=== PATIENT | female | born 1985 | race Caucasian/White ===

== ENCOUNTER 2022-01-05 10:30 | Outpatient (REF) | payer OTHER, SELFPAY ==
--- NOTE | ~2022-01-05 | XR_ITS ---
EXAMINATION: XR HAND, RIGHT CLINICAL INFORMATION: Right hand pain. COMPARISON: Right hand radiographs dated 12/11/2021. TECHNIQUE: PA, lateral, and oblique views of the right hand. FINDINGS: Redemonstration of an oblique fracture through the ulnar base of the 3rd distal phalanx which contacts the distal interphalangeal articular surface. There appears to be slight interval increase in previously seen displacement with a fracture gap measuring up to 0.2 cm. There is surrounding soft tissue swelling. No osseous erosion. No abnormal soft tissue calcification. XR/XR hand RT min 3V IMPRESSION: Redemonstration of a 3rd distal phalangeal fracture with slight interval increase in displacement when compared to the prior examination. Surrounding soft tissue swelling.
== END 2022-01-05 10:31 | disposition home or self-care (01) ==
LOC: HO.HOSX 10:30
PROVIDERS: PCP Internal Medicine; Visit Provider Physician Assistant
DX: S62.632 Displaced fracture of distal phalanx of right middle finger (principal); X58.XXXD Exposure to other specified factors, subsequent encounter
CPT/HCPCS: 73130; 99202

== ENCOUNTER 2022-02-16 09:05 | Outpatient (REF) | payer OTHER, SELFPAY | END 2022-02-16 09:06 | disposition home or self-care (01) | LOC: HO.HOSX 09:05 | PROVIDERS: Visit Provider Orthopaedic Surgery | DX: Z13.89 Encounter for screening for other disorder (principal) ==